=== PATIENT | male | born 1980 | race African-American/Black ===

== ENCOUNTER 2021-09-18 19:48 | Emergency (ER) | payer OTHER ==
[~2021-09-18] VITALS: Ht 182.9 cm; Wt 87.3 kg
[2021-09-18 23:23] LABS: Basophils # (auto) 0 10 ^3/uL (0-0.2); Basophils % (auto) 0.6 % (0.0-2.0); Eosinophils # (auto) 0.1 10 ^3/uL (0-0.8); Eosinophils % (auto) 1.6 % (0.0-7.0); Hematocrit 44.6 % (41.0-53.0); Hemoglobin 14.6 g/dL (13.5-17.5); Lymphocytes # (auto) 3.2 10 ^3/uL (0.4-5.4); Lymphocytes % (auto) 38.1 % (10.0-50.0); Mean Corpuscular Hemoglobin 29.1 pg (28.0-32.0); Mean Corpuscular Hgb Conc. 32.7 g/dL (32.0-36.0); Mean Corpuscular Volume 88.9 fL (80.0-100.0); Monocytes # (auto) 0.8 10 ^3/uL (0-1.3); Neutrophils # (auto) 4.3 10 ^3/uL (1.6-8.6); Neutrophils % (auto) 50.7 % (37.0-80.0); Red Blood Cells 5.02 10^6/uL (4.5-5.90); Red Cell Distribution Width 13.9 % (11.8-14.3); White Blood Cell 8.5 10^3/uL (4.4-10.8)
[2021-09-18 23:37] LABS: Calcium 8.8 mg/dL (8.5-10.1); Potassium 3.9 mmol/L (3.5-5.1)
[2021-09-18 23:46] LABS: BUN/Creatinine Ratio 13.4; Bilirubin, Total 0.2 mg/dL (0.2-1.0); CRP High Sensitivity 1.28 mg/dL (< 0.3); Total Protein 8.2 g/dL (6.4-8.2)
[2021-09-19] MEDS ORDERED: SODIUM CHLORIDE 0.9% 1,000 ML IV ONE (01:15)
[2021-09-19] MEDS ORDERED: CLINDAMYCIN 600MG IV 50 ML IV ONE (01:15)
[2021-09-19] MEDS ORDERED: HYDROmorphone HCL 2 MG/ML VL/or syr IV ONE (03:45)
[2021-09-19 06:18] VITALS: BP 107/69
== END 2021-09-19 17:50 | disposition left against medical advice (07) ==
LOC: ER 19:48
DX: L02.01 Cutaneous abscess of face (principal); K11.9 Disease of salivary gland, unspecified; Z53.29 Procedure and treatment not carried out because of patient's decision for other reasons
CPT/HCPCS: 36415; 70486; 80053; 83605; 85025; 85652; 86141; 99285; J1170; J3490